=== PATIENT | female | born 1965 | race Caucasian/White ===

== ENCOUNTER 2024-06-07 11:42 | Inpatient (IN) | payer MEDICARE, MEDICAID ==
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
[2024-06-07 12:49] LABS: Urn Cannabinoid Scrn Not Detected (NotDetected)
[2024-06-07 12:50] LABS: Amphetamine Screen,Urine Not Detected (NotDetected); Barbiturate Screen,Urine Not Detected (NotDetected); Benzodiazepines Screen,Urine Not Detected (NotDetected); Cocaine Screen,Urine Not Detected (NotDetected); Methadone Screen, Urine Not Detected (NotDetected); Opiate Screen,Urine Not Detected (NotDetected); Oxycodone Screen, Urine Not Detected (NotDetected); Phencyclidine Screen,Urine Not Detected (NotDetected); Tricyclic Antidepressant,Urine Not Detected (NotDetected)
[2024-06-07] MEDS: LORazepam 1 MG TAB PO STA ×2 (13:02→22:44)
[2024-06-07 22:29] LABS: Basophils # (A) 0.1 k/uL (0-0.2); Basophils % (A) 1 %; Eosinophils % (A) 0 %; HCT 43.1 % (34.0-46.0); HGB 14.3 gm/dL (11.4-16.0); Lymphocytes % (A) 22 %; MCH 32.4 pg (25.0-35.0); MCHC 33.2 g/dL (31.0-37.0); MCV 97.6 fL (80.0-100.0); Mean Platelet Volume 7.1; Monocytes # (A) 0.5 k/uL (0-1.0); Monocytes % (A) 6 %; Neutrophils # (A) 6.4 k/uL (1.3-7.7); Neutrophils % (A) 71 %; Platelet Count 266 k/uL (150-450); RBC 4.42 m/uL (3.80-5.40); RDW 13.4 % (11.5-15.5); WBC 9.1 k/uL (3.8-10.6)
[2024-06-07 22:40] LABS: ALT 13 U/L (4-34); AST 23 U/L (14-36); African American GFR (CKD) >90 (>60 ml/min/1.73 sqM); Albumin 3.9 g/dL (3.5-5.0); Alkaline Phosphatase 81 U/L (38-126); Anion Gap 10 mmol/L; Blood Urea Nitrogen 13 mg/dL (7-17); Calcium 10.1 mg/dL (8.4-10.2); Carbon Dioxide 25 mmol/L (22-30); Chloride 106 mmol/L (98-107); Glucose 91 mg/dL (74-99); Non-African American GFR(CKD) 81 (>60 ml/min/1.73 sqM); Potassium 4.6 mmol/L (3.5-5.1); Sodium 141 mmol/L (137-145); Total Bilirubin 0.4 mg/dL (0.2-1.3); Total Protein 6.4 g/dL (6.3-8.2)
[2024-06-07] MEDS: HALOPERIDOL LACTATE 5 MG/ML 1 ML VIAL IM STA (22:56)
[2024-06-07 23:01] LABS: Appearance,Urine Clear (Clear); Bilirubin,Urine Negative (Negative); Blood,Urine Negative (Negative); Color,Urine Colorless; Glucose,Urine (UA) Negative (Negative); Ketones,Urine Negative (Negative); Leukocyte Esterase,Urine Negative (Negative); Nitrite,Urine Negative (Negative); PH, Urine 5.5 (5.0-8.0); Protein,Urine Negative (Negative); Urobilinogen,Urine <2.0 mg/dL (<2.0)
[2024-06-08] MEDS: HALOPERIDOL LACTATE 5 MG/ML 1 ML VIAL IM STA (10:02)
[2024-06-08] MEDS ORDERED: MAG HYDROX/AL HYDROX/SIMETH 355 ML BOTTLE PO PRN (17:24)
[2024-06-08] MEDS ORDERED: MAGNESIUM HYDROXIDE 2,400 MG/30 ML CUP PO PRN (17:24)
[2024-06-08] MEDS ORDERED: ACETAMINOPHEN TAB 325 MG TAB PO PRN (17:24)
[2024-06-08] MEDS ORDERED: LORazepam 2 MG/ML INJ IM PRN (17:30)
[2024-06-08] MEDS: HALOPERIDOL LACTATE 5 MG/ML 1 ML VIAL IM PRN (18:32)
[2024-06-08] MEDS: ATORVASTATIN 40 MG TAB PO SCH (21:49)
[2024-06-08] MEDS: QUEtiapine 200 MG TAB PO SCH (21:49)
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
[2024-06-09] MEDS: amLODIPine 2.5 MG TAB PO SCH (08:58)
[2024-06-09] MEDS: NICOTINE 14MG/24HR PATCH TRANSDERM SCH (08:58)
[2024-06-09] MEDS: haloperidoL 5 MG TAB PO PRN (10:26)
[2024-06-09] MEDS: haloperidoL 5 MG TAB PO SCH (13:49)
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
[2024-06-09] MEDS: diphenhydrAMINE 25 MG CAP PO SCH (21:17)
[2024-06-09 22:39] LABS: LDL Cholesterol,Calculated 43.9 mg/dL (0.0-131.0)
--- NOTE | 2024-06-10 11:32 | P.PN ---
Progress Note - Text Progress Note Date: 06/10/24 Interval History: Patient was seen in the [facility], and was directable and agreeable to speak with script writer in the hallway. She states that she feels her guardian is , because she states he would have never put her in here. She claims to have no home, and no money. Patient requires redirection several times. She states she got about 6hours of sleep last night, but she has not been eating because the food is garbage. She is very disorganized in thought. At this time patient denies any suicidal or homicidal ideations, intent or plan. Patient endorses auditory hallucinations, denies visual hallucinations and denies any paranoia. Patient denies any side effects from the medications and has been compliant with meds. MENTAL STATUS EXAM: General Appearance: Patient appears to be older than stated age is alert, directable, and attempts to cooperate. She is very tall. Disheveled appearance, wearing glasses, casually dressed. Patient appears to have fair hygiene. Behavior: Patient is standing without any agitated behavior. Very animated. Speech: Patient's speech is fluent and nonpressured. Loud tone, expressive Mood/Affect: Patient reports their mood is depressed, affect is congruent and constricted. Suicidality/Homicidality: Patient denies having any homicidal ideation intent or plan. Denies any suicidal ideations intent or plan Perceptions: Patient denies visual hallucinations and endorses auditory hallucinations Though content/process: There is evidence of delusional thought content. disorganized, paranoia. Memory and concentration: AOX3, grossly intact for the purposes of this session. Judgment and insight: poor judgment, and insight IMPRESSIONS: schizophrenia nicotine dependance PLAN: -Patient is admitted under voluntary status to MHU for stabilization of psychiatric symptoms and safety. Patient has not signed adult voluntary form and medication consent and is placed in patient's chart. A second certification was completed and along with petition will be filed for court. -Medications : increase Haldol 5mg po TID for psychosis, Seroquel 200mg qhs for sleep and mood stabilization -Ativan and Haldol PRN for agitation/aggression -NRT - nicotine patch -SW on board for discharge planning. Encourage patient to participate in groups to work on coping skills. Will await deferral and court date.
[2024-06-10] MEDS: haloperidoL 5 MG TAB PO SCH (15:48)
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
[2024-06-11] MEDS: BENZTROPINE MESYLATE 1 MG TAB PO SCH (11:36)
[2024-06-11] MEDS: LORATADINE 10 MG TAB PO SCH (11:38)
--- NOTE | 2024-06-12 10:28 | P.PN ---
Progress Note - Text Progress Note Date: 06/12/24 Interval History: Patient was seen in the [facility], and was directable and agreeable to speak with yan parker. Patient appears to be a bit calmer today with her affect, states initially that she is doing "fine". Continues to yell at times however this is improving. She continues to have illogical thoughts and bizarre delusions, she is less preoccupied with this today. Claims that she is taking the medications however has a poor understanding of what the medications help her with. She appears to be less demanding today mildly improving insight and judgment. States that she slept a bit better last night. Appetite is improving mildly. At this time patient denies any suicidal or homicidal ideations, intent or plan. Patient endorses auditory hallucinations, endorses visual hallucinations and denies any paranoia, however is paranoid. Patient denies any side effects from the medications and has been compliant with meds. MENTAL STATUS EXAM: General Appearance: Patient appears to be older than stated age is alert, directable, and attempts to cooperate. She is tall. Improving appearance, wearing glasses, casually dressed. Patient appears to have fair hygiene. Behavior: Patient is standing without any agitated behavior. Very animated. Improving mildly Speech: Patient's speech is fluent and nonpressured. Loud tone, expressive, improving mildly Mood/Affect: Patient reports their mood is terrible, affect is congruent and constricted., Improving mildly Suicidality/Homicidality: Patient denies having any homicidal ideation intent or plan. Denies any suicidal ideations intent or plan Perceptions: Patient endorses visual hallucinations and endorses auditory hallucinations Though content/process: There is evidence of delusional thought content. disorganized, paranoia. flight of ideas, improving mildly Memory and concentration: AOX3, grossly intact for the purposes of this session. Judgment and insight: poor judgment, and insight, improving mildly IMPRESSIONS: schizophrenia nicotine dependance PLAN: -Patient is admitted under voluntary status to MHU for stabilization of psychiatric symptoms and safety. Patient has not signed adult voluntary form and medication consent and is placed in patient's chart. -Medications : Continue with Haldol 10 mg po BID for psychosis, Seroquel 200mg qhs for sleep and mood stabilization, cogentin 1mg bid for EPS symptoms -Ativan and Haldol PRN for agitation/aggression -NRT - nicotine patch -SW on board for discharge planning. Encourage patient to participate in groups to work on coping skills. Patient did not defer with erisa attorney, full court hearing on Saturday.
--- NOTE | 2024-06-13 19:20 | P.PN ---
Progress Note - Text Progress Note Date: 06/13/24 Interval history: Patient was seen wandering the hallways and was directable and agreeable to s peak with chief writer. She shared "I read minds. I hear voices. I am clairvoyant." Describes that she has been "working out" and feeling "healthy" on Haldol. However, she felt that clozapine "conked me out". She describes ongoing auditory hallucinations that "speak evil Are mean to me". She denies any visual hallucinations. She reports having slept "wonderfully" and has been eating her meals and taking care of her hygiene. When asked about her mood she shared "I'm on Claritin".. At this time patient denies any suicidal or homicidal ideations, intent, or plan. Patient denies any side effects from the medications and has been compliant with meds. Mental status exam: General Appearance: Patient appears to be stated age is alert, directable, and cooperative. Behavior: Patient is calm and directable. Mild psychomotor agitation. Speech: Patient's speech is fluent and nonpressured. Mood/Affect: Mood is "I'm on claritin", affect is euthymic and constricted. Suicidality/Homicidality: Patient denies having any suicidal or homicidal ideation intent or plan. Perceptions: Patient denies any visual hallucinations. +auditory hallucinations Though content/process: There is evidence of delusional thought content and thought process is tangential and disorganized Memory and concentration: AOX3, grossly intact for the purposes of this session Judgment and insight: improving mildly Assessment/Plan: Continue with current diagnoses: Sichzophrenia, nicotine dependence Patient continues to meet criteria for inpatient psychiatric admission for symptom stabilization and safety. Court hearing on Saturday. Patient will be maintained on current psychotropic medication regimen: Haldol 10 mg BID for psychosis, Seroquel 200 mg QHS for sleep/mood stabilization, Cogentin 1 mg BID for EPS Monitor for medication compliance and for any psychotropic medication side effects. Will continue to monitor ongoing response to treatment. Encouraged participation in milieu.
[2024-06-14] MEDS: diphenhydrAMINE 25 MG CAP PO STA (00:01)
[2024-06-14] MEDS: NICOTINE GUM (POLACRILEX) 2 MG GUM BUCCAL PRN (12:03)
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
--- NOTE | 2024-06-15 10:51 | P.PN ---
Progress Note - Text Progress Note Date: 06/15/24 Interval History: Patient was seen in the [facility], and was directable and agreeable to speak with yan parker in the office. Patient is rambling about the medications being drugs, and how five people are because of the drugs on the unit. She is focused on her medications, the dosing and scheduling and also bizzare side effects of the meds, it was was fairly disorganized content. She states that the seroquel gives her voices. Patient is very disorganized in her thought process. She claims she did not sleep last night. She states her appetite is fair. At this time patient denies any suicidal or homicidal ideations, intent or plan. Patient endorses auditory hallucinations, denies visual hallucinations and denies any paranoia, however is paranoid. Patient denies any side effects from the medications and has been compliant with meds. MENTAL STATUS EXAM: General Appearance: Patient appears to be older than stated age is alert, directable, and attempts to cooperate. She is tall. Improving appearance, wearing glasses, casually dressed. Patient appears to have fair hygiene. Behavior: Patient is seated without any agitated behavior. Very animated. Improving mildly Speech: Patient's speech is fluent and nonpressured. Loud tone, expressive, improving mildly Mood/Affect: Patient reports their mood is terrible, affect is congruent and constricted., Improving mildly Suicidality/Homicidality: Patient denies having any homicidal ideation intent or plan. Denies any suicidal ideations intent or plan Perceptions: Patient denies visual hallucinations and endorses auditory hallucinations Though content/process: There is evidence of delusional thought content. disorganized, paranoia. flight of ideas. Memory and concentration: AOX3, grossly intact for the purposes of this session. Judgment and insight: chronically poor judgment, and insight, improving mildly IMPRESSIONS: schizophrenia nicotine dependance PLAN: -Patient is admitted under voluntary status to MHU for stabilization of psychiatric symptoms and safety. Patient has not signed adult voluntary form and medication consent and is placed in patient's chart. -Medications : Haldol 10 mg po BID for psychosis, d/c Seroquel add trazodone 50mg qhs for sleep, cogentin 1 mg bid for EPS symptoms -Ativan and Haldol PRN for agitation/aggression -NRT - nicotine patch -SW on board for discharge planning. Encourage patient to participate in groups to work on coping skills. Patient did not defer with employment attorney, full court he aring on Saturday.
[2024-06-15] MEDS: LORazepam 1 MG TAB PO PRN (16:02)
[2024-06-15] MEDS: IBUPROFEN 600 MG TAB PO PRN (16:02)
[2024-06-15] MEDS: traZODone HCL 50 MG TAB PO SCH (21:48)
[2024-06-15] MEDS: haloperidoL 5 MG TAB PO SCH (21:48)
[2024-06-16] MEDS ORDERED: HALOPERIDOL LACTATE 5 MG/ML 1 ML VIAL IM PRN (11:57)
--- NOTE | 2024-06-16 12:04 | P.PN ---
Progress Note - Text Progress Note Date: 06/16/24 Interval History: Patient was seen in the [place], and was directable and agreeable to speak with yan parker in the office. Patient states she is ok today. She was placed on a court order today. Her delusions are improving, and her thought process is mildly improving. continues to be illogical in her thought process however this is improving mildly. She was calmer today, with a softer tone of voice. She states her appetite is fair.She claims to have slept 16 hours last night. At this time patient denies any suicidal or homicidal ideations, intent or plan. Patient endorses auditory hallucinations, denies visual hallucinations and denies any paranoia, however is paranoid. Patient denies any side effects from the medications and has been compliant with meds. MENTAL STATUS EXAM: General Appearance: Patient appears to be older than stated age is alert, directable, and attempts to cooperate. She is tall. Improving appearance, wearing glasses, casually dressed. Patient appears to have fair hygiene. Behavior: Patient is seated without any agitated behavior. Very animated. Improving mildly Speech: Patient's speech is fluent and nonpressured. expressive, improving mildly Mood/Affect: Patient reports their mood is ok, affect is congruent and constricted., Improving mildly Suicidality/Homicidality: Patient denies having any homicidal ideation intent or plan. Denies any suicidal ideations intent or plan Perceptions: Patient denies visual hallucinations and endorses auditory hallucinations Though content/process: There is evidence of delusional thought content. disorganized, paranoia. flight of ideas. mildly improving Memory and concentration: AOX3, grossly intact for the purposes of this session. Judgment and insight: chronically poor judgment, and insight, improving mildly IMPRESSIONS: schizophrenia nicotine dependance PLAN: -Patient is admitted under voluntary status to [facility] for stabilization of psychiatric symptoms and safety. Patient has not signed adult voluntary form and medication consent and is placed in patient's chart. -Medications : Haldol 10 mg po BID for psychosis, trazodone 50mg qhs for sleep, cogentin 1 mg bid for EPS symptoms, if patient refuses PO haldol, give IM, per court order -Ativan and Haldol PRN for agitation/aggression -NRT - nicotine patch -SW on board for discharge planning. Encourage patient to participate in groups to work on coping skills. Patient received court order on 06/16
[2024-06-17] MEDS: diphenhydrAMINE 50 MG CAP PO STA (03:17)
--- NOTE | 2024-06-17 11:24 | P.PN ---
Progress Note - Text Progress Note Date: 06/17/24 Interval History: Patient was seen in her room, and was directable and agreeable to speak with yan parker at the bedside. Patient tested positive for covid today, and was moved to a private room, and encouraged to isolate to her room. Patient is denying any symptoms of covid at this time. Patient states she does not know why everyone is after her, trying to control her. When asked how she is doing today, she states that she has a lot of tears inside of her head, and the only way to cure it was to drink 10 pots of coffee. She states she is still experiencing AH, and she does not want to talk about the vile things they say. She was calmer today, with a softer tone of voice. She states her appetite is fair.She claims to have slept well last night. At this time patient denies any suicidal or homicidal ideations, intent or plan. Patient endorses auditory hallucinations, denies visual hallucinations and denies any paranoia, however is paranoid. Patient denies any side effects from the medications and has been compliant with meds. MENTAL STATUS EXAM: General Appearance: Patient appears to be older than stated age is alert, directable, and attempts to cooperate. She is tall. Improving appearance, wearing glasses, casually dressed. Patient appears to have fair hygiene. Behavior: Patient is seated without any agitated behavior. Very animated. Improving mildly Speech: Patient's speech is fluent and nonpressured. expressive, improving mildly Mood/Affect: Patient reports their mood is ok, affect is congruent and constricted., Improving mildly Suicidality/Homicidality: Patient denies having any homicidal ideation intent or plan. Denies any suicidal ideations intent or plan Perceptions: Patient denies visual hallucinations and endorses auditory hallucinations Though content/process: There is evidence of delusional thought content, paranoia improving. flight of ideas. mildly improving Memory and concentration: AOX3, grossly intact for the purposes of this session. Judgment and insight: chronically poor judgment, and insight, improving mildly IMPRESSIONS: schizophrenia nicotine dependance PLAN: -Patient is admitted under voluntary status to [facility] for stabilization of psychiatric symptoms and safety. Patient has not signed adult voluntary form and medication consent and is placed in patient's chart. -Medications : Haldol 10 mg po BID for psychosis, increase trazodone 100 mg qhs for sleep, cogentin 1 mg bid for EPS symptoms, if patient refuses PO haldol, give IM, per court order -Ativan and Haldol PRN for agitation/aggression -NRT - nicotine patch -SW on board for discharge planning. Encourage patient to participate in groups to work on coping skills. Patient received court order on 06/16. Hopeful for discharge Saturday versus early next week if patient continues to improve.
[2024-06-17] MEDS: traZODone HCL 100 MG TAB PO SCH (20:54)
[2024-06-18 10:10] VITALS: BMI 26.9
--- NOTE | 2024-06-18 11:08 | P.PN ---
Progress Note - Text Progress Note Date: 06/18/24 Interval History: Patient was seen in the hallway, and was directable and agreeable to speak with commercial loan underwriter. Patient stated she is still suffering from "clinical depression", and the only thing that will help is claritin and benedryl to dry all the tears in her head up. commercial loan underwriter offered antidepressant options however patient declined. She is improving with impulse control. She states her appetite is fair. She claims to have slept well last night. At this time patient denies any suicidal or homicidal ideations, intent or plan. Patient endorses auditory hallucinations, denies visual hallucinations and denies any paranoia, however is paranoid. Patient denies any side effects from the medications and has been compliant with meds. MENTAL STATUS EXAM: General Appearance: Patient appears to be older than stated age is alert, directable, and attempts to cooperate. She is tall. Improving appearance, wearing glasses, casually dressed. Patient appears to have fair hygiene. Behavior: Patient is seated without any agitated behavior. Very animated. Improving mildly Speech: Patient's speech is fluent and nonpressured. expressive, improving mildly Mood/Affect: Patient reports their mood is ok, affect is congruent and constricted., Improving mildly Suicidality/Homicidality: Patient denies having any homicidal ideation intent or plan. Denies any suicidal ideations intent or plan Perceptions: Patient denies visual hallucinations and endorses auditory hallucinations Though content/process: There is evidence of delusional thought content, paranoia improving. flight of ideas. mildly improving Memory and concentration: AOX3, grossly intact for the purposes of this session. Judgment and insight: chronically poor judgment, and insight, improving mildly IMPRESSIONS: schizophrenia nicotine dependance PLAN: -Patient is admitted under voluntary status to [facility] for stabilization of psychia tric symptoms and safety. Patient has not signed adult voluntary form and medication consent and is placed in patient's chart. -Medications : Haldol 10 mg po BID for psychosis, trazodone 100 mg qhs for sleep, cogentin 1 mg bid for EPS symptoms, if patient refuses PO haldol, give IM, per court order. increased patients claritin per pts request. -Ativan and Haldol PRN for agitation/aggression -NRT - nicotine patch -SW on board for discharge planning. Encourage patient to participate in groups to work on coping skills. Patient received court order on 06/16. Hopeful for discharge early next week if patient continues to improve.
[2024-06-18] MEDS: LORATADINE 10 MG TAB PO STA (11:40)
[2024-06-19] MEDS: LORATADINE 10 MG TAB PO SCH (08:39)
--- NOTE | 2024-06-19 11:41 | P.PN ---
Progress Note - Text Progress Note Date: 06/19/24 Interval History: Patient was seen in the hallway, and was directable and agreeable to speak with story writer. Patient appears to have mildly improving thought process today, she was more cooperative today with the interview. She was requesting to be put on Zoloft for depression. She continues to confuse her medications, believes that she did not sleep last night due to taking Seroquel however patient is not on Seroquel any longer. She was complaining of the sanitary condition of the area of the waiting that she is in. She continues to pace the hallways, she started taking Cogentin this morning. Claims that her appetite is fair. Thought process appears to be mildly more organized today. At this time patient denies any suicidal or homicidal ideations, intent or plan. Patient endorses auditory hallucinations, denies visual hallucinations and denies any paranoia, however is paranoid. Patient denies any side effects from the medications and has been compliant with meds. MENTAL STATUS EXAM: General Appearance: Patient appears to be older than stated age is alert, directable, and attempts to cooperate. She is tall. Improving appearance, wearing glasses, casually dressed. Patient appears to have fair hygiene. Behavior: Patient is seated without any agitated behavior. Very animated. Improving mildly Speech: Patient's speech is fluent and nonpressured. expressive, improving mildly Mood/Affect: Patient reports their mood is depressed, affect is congruent and constricted. Improving mildly Suicidality/Homicidality: Patient denies having any homicidal ideation intent or plan. Denies any suicidal ideations intent or plan Perceptions: Patient denies visual hallucinations and endorses auditory hallucinations Though content/process: There is evidence of delusional thought content, paranoia improving. flight of ideas. mildly improving Memory and concentration: AOX3, grossly intact for the purposes of this session. Judgment and insight: chronically poor judgment, and insight, improving mildly IMPRESSIONS: schizophrenia nicotine dependance PLAN: -Patient is admitted under voluntary status to [facility] for stabilization of psychiatric symptoms and safety. Patient has not signed adult voluntary form and medication consent and is placed in patient's chart. -Medications : Haldol 10 mg po BID for psychosis, increase trazodone 150 mg qhs for sleep, cogentin 1 mg bid for EPS symptoms, if patient refuses PO haldol, give IM, per court order. Start Zoloft 50 mg daily for mood/anxiety. -Ativan and Haldol PRN for agitation/aggression -NRT - nicotine patch -SW on board for discharge planning. Encourage patient to participate in groups to work on coping skills. Patient received court order on 06/16. Hopeful for discharge early next week if patient continues to improve will be going back to pre-admission address
[2024-06-19] MEDS: SERTRALINE 50 MG TAB PO SCH (13:30)
[2024-06-19] MEDS: traZODone HCL 50 MG TAB PO SCH (20:04)
[2024-06-19] MEDS: diphenhydrAMINE 50 MG CAP PO STA (20:33)
--- NOTE | 2024-06-20 10:25 | P.PN ---
Subjective Progress Note Date: 06/20/24 Patient was seen in the hallway, and was directable and agreeable to speak with screenplay writer. Patient was cooperative he except she is on a Covid unit and says she no longer had Covid because she was given Zoloft which caused her head to pop and crackles and then she got Goldvein eyes and people were kissing her eyes which she liked. Therefore she did not feel she needed to wear the mask. she says she did not sleep that well because she needs to have Benadryl and that they did not give her Benadryl last night they gave her a capsule of pink champagne. She was complaining of the sanitary condition of the area of the waiting that she is in. She continues to pace the hallways, she is taking Cogentin . Claims that her appetite is fair. Thought process are pretty loose. At this time patient denies any suicidal or homicidal ideations, intent or plan. Patient endorses auditory hallucinations, denies visual hallucinations and denies any paranoia. Patient denies any side effects from the medications and has been compliant with meds. MENTAL STATUS EXAM: General Appearance: Patient appears to be older than stated age is alert, directable, and attempts to cooperate. She is tall. Improving appearance, wearing glasses, casually dressed. Patient appears to have fair hygiene. Behavior: Patient is seated without any agitated behavior. Very animated. Improving mildly Speech: Patient's speech is fluent and nonpressured. expressive, improving mildly Mood/Affect: Patient reports their mood is depressed, affect is congruent and constricted. Improving mildly Suicidality/Homicidality: Patient denies having any homicidal ideation intent or plan. Denies any suicidal ideations intent or plan Perceptions: Patient denies visual hallucinations and endorses auditory hallucinations Though content/process: There is evidence of delusional thought content, paranoia improving. flight of ideas. mildly improving Memory and concentration: AOX3, grossly intact for the purposes of this session. Judgment and insight: chronically poor judgment, and insight, improving mildly assessment: The patient does not answer questions and is quite delusional she gets focused on trazodone keeps her from sleeping or some such thing as hard to know what is actually happening. She is getting a good dose of Haldol and just is taking him a while to kick in. IMPRESSIONS: schizophrenia nicotine dependance PLAN: no change in medications -Patient is admitted under voluntary status to [facility] for stabilization of psychiat kenny symptoms and safety. Patient has not signed adult voluntary form and medication consent and is placed in patient's chart. -Medications : Haldol 10 mg po BID for psychosis, increase trazodone 150 mg qhs for sleep, cogentin 1 mg bid for EPS symptoms, if patient refuses PO haldol, give IM, per court order. Start Zoloft 50 mg daily for mood/anxiety. -Ativan and Haldol PRN for agitation/aggression -NRT - nicotine patch -SW on board for discharge planning. Encourage patient to participate in groups to work on coping skills. Patient received court order on 06/16. Hopeful for discharge early next week if patient continues to improve will be going back to pre-admission address Objective - Vital Signs Vital signs: Vital Signs Temp 98 F 06/20/24 08:16 Pulse 84 06/20/24 08:16 Resp 18 06/20/24 08:16 BP 108/66 06/20/24 08:16 Pulse Ox 97 06/18/24 06:48 FiO2 - Labs CBC & Chem 7: 06/07/24 21:57 06/07/24 21:57
[2024-06-20] MEDS: diphenhydrAMINE 25 MG CAP PO STA (21:27)
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
[2024-06-21] MEDS: diphenhydrAMINE 25 MG CAP PO STA (22:53)
[2024-06-22 07:12] VITALS: BP 144/78; PULSE 78; RESP 16; TEMP 97.8
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
== END 2024-06-22 15:51 | disposition home or self-care (01) | DRG 885 ==
LOC: EC 11:42 → 3MHU 06-08 17:21
PROVIDERS: ADMIT Psychiatry & Neurology Psychiatry; ATTEND Psychiatry & Neurology Psychiatry
DX: F20.9 Schizophrenia, unspecified (principal); U07.1 COVID-19; F17.210 Nicotine dependence, cigarettes, uncomplicated; F32.A Depression, unspecified; F41.9 Anxiety disorder, unspecified; Z79.899 Other long term (current) drug therapy; Z71.6 Tobacco abuse counseling
CPT/HCPCS: 36415; 80053; 80061; 80306; 81003; 81025; 82075; 83036; 84443; 85025; 87635; 87636; 96372; 99285